=== PATIENT | male | born 1965 | race Caucasian/White ===

== ENCOUNTER 2019-03-04 09:12 | Emergency (ER) | payer MEDICAID ==
[~2019-03-04] VITALS: Ht 170.2 cm; Wt 72.6 kg
[2019-03-04] MEDS ORDERED: LEVETIRACETAM INJ 1,000 MG in D5W 5% 100 ML IV ONE (10:15)
[2019-03-04] MEDS ORDERED: LABETALOL HCL 5 MG/ML 4ML SYRINGE IV ONE (10:15)
[2019-03-04 10:43] VITALS: BP 149/87
[2019-03-04 11:00] LABS: Basophils # (auto) 0 uL; Eosinophils # (auto) 0 uL; Lymphocytes # (auto) 1.2 uL; Monocytes # (auto) 0.6 uL; Nucleated Red Blood Cells % 0.1 %
[2019-03-04 11:02] LABS: Basophils % (auto) 0.6 % (0.0-2.0); Eosinophils % (auto) 0.2 % (0.0-7.0); Hematocrit 44.3 % (41.0-53.0); Hemoglobin 15.4 g/dL (13.5-17.5); Lymphocytes % (auto) 22.1 % (10.0-50.0); Mean Corpuscular Hemoglobin 36.7 pg (28.0-32.0); Mean Corpuscular Hgb Conc. 34.8 g/dL (32.0-36.0); Mean Corpuscular Volume 105.7 fL (80.0-100.0); Monocytes % (auto) 11.3 % (0.0-12.0); Neutrophils # (auto) 3.4 uL; Neutrophils % (auto) 65.8 % (37.0-80.0); Platelet Count (auto) 176 10^3/uL (140-450); Red Blood Cells 4.19 10^6/uL (4.5-5.90); Red Cell Distribution Width 14.2 % (11.8-14.3); White Blood Cell 5.2 10^3/uL (4.4-10.8)
[2019-03-04 11:09] LABS: Albumin 3.7 g/dL (3.4-5.0); Anion Gap 11 (5-15); Blood Urea Nitrogen 7 mg/dL (7-18); Calcium 8.4 mg/dL (8.5-10.1); Carbon Dioxide 24 mmol/L (21-32); Chloride 103 mmol/L (98-107); Glucose 104 mg/dL (74-106); Potassium 3.4 mmol/L (3.5-5.1); Sodium 138 mmol/L (136-145)
[2019-03-04 11:15] LABS: Alanine Aminotransferase 49 U/L (16-61); Alkaline Phosphatase 106 U/L (45-117); Aspartate Aminotransferase 96 U/L (15-37); BUN/Creatinine Ratio 9.7; Bilirubin, Total 0.5 mg/dL (0.2-1.0); GFR African American 146 mL/min; GFR Non-African American 121 mL/min; Total Protein 7.7 g/dL (6.4-8.2)
== END 2019-03-04 10:58 | disposition short-term general hospital (02) ==
LOC: ER 09:12
DX: S06.6X9A Traumatic subarachnoid hemorrhage with loss of consciousness of unspecified duration, initial encounter (principal); S00.12XA Contusion of left eyelid and periocular area, initial encounter; F10.10 Alcohol abuse, uncomplicated; W01.0XXA Fall on same level from slipping, tripping and stumbling without subsequent striking against object, initial encounter; Y93.89 Activity, other specified; Y92.89 Other specified places as the place of occurrence of the external cause; Y99.8 Other external cause status
CPT/HCPCS: 36415; 70450; 70486; 71045; 80053; 84484; 85025; 85610; 85730; 96374; 99291; J1953; J3490; J7060

== ENCOUNTER → 2019-04-23 | Outpatient (CLI) | payer MEDICAID ==
[~2019-04-23] MED LIST: ACET-1156 PO; ATOM80CA PO; ATOR20TA50 PO; BENA10TA9 PO; CYA100I PO; LEVE500T22 PO; MULT-228 PO; PHE100C PO; THIA100T5 PO
== END | disposition home or self-care (01) ==
LOC: LAB 10:09
PROVIDERS: ATTEND Nurse Practitioner
DX: G40.909 Epilepsy, unspecified, not intractable, without status epilepticus (principal)
CPT/HCPCS: 36415; 80185

== ENCOUNTER → 2019-05-07 | Outpatient (CLI) | payer MEDICAID | END | disposition home or self-care (01) | LOC: LAB 13:23 | PROVIDERS: ATTEND Nurse Practitioner | DX: G40.909 Epilepsy, unspecified, not intractable, without status epilepticus (principal) | CPT/HCPCS: 36415; 80185 ==

== ENCOUNTER 2021-01-18 23:26 | Emergency (ER) | payer MEDICAID ==
[~2021-01-18] VITALS: Ht 172.7 cm; Wt 70.3 kg
[~2021-01-18 23:26] MED LIST changes: +BENA10TA15 PO; -BENA10TA9 PO; -LEVE500T22 PO; +LEVE500T32 PO
[2021-01-19 01:04] LABS: Basophils # (auto) 0.1 10 ^3/uL (0-0.2); Monocytes # (auto) 0.3 10 ^3/uL (0-1.3); White Blood Cell 5.7 10^3/uL (4.4-10.8)
[2021-01-19 01:06] LABS: Eosinophils # (auto) 0.1 10 ^3/uL (0-0.8); Eosinophils % (auto) 0.9 % (0.0-7.0); Hematocrit 46.5 % (41.0-53.0); Lymphocytes # (auto) 2.4 10 ^3/uL (0.4-5.4); Lymphocytes % (auto) 41.6 % (10.0-50.0); Mean Corpuscular Hemoglobin 35.5 pg (28.0-32.0); Mean Corpuscular Hgb Conc. 34.5 g/dL (32.0-36.0); Monocytes % (auto) 5.9 % (0.0-12.0); Neutrophils # (auto) 2.9 10 ^3/uL (1.6-8.6); Neutrophils % (auto) 50.6 % (37.0-80.0); Nucleated Red Blood Cells % 0.1 %; Red Blood Cells 4.51 10^6/uL (4.5-5.90); Red Cell Distribution Width 14.1 % (11.8-14.3)
[2021-01-19 01:19] LABS: INR 1.21 (0.9-1.15); Partial Thromboplastin Time 31.1 sec (23.6-33.0)
[2021-01-19 01:25] LABS: Albumin 4.1 g/dL (3.4-5.0); BUN/Creatinine Ratio 10.1; Calcium 8.5 mg/dL (8.5-10.1); Magnesium 2.4 mg/dL (1.6-2.6); Potassium 3.9 mmol/L (3.5-5.1)
[2021-01-19 01:27] LABS: Lactic Acid w/Reflex 2.3 mmol/L (0.4-2.0)
[2021-01-19 01:33] LABS: Bilirubin, Total 0.6 mg/dL (0.2-1.0); Total Protein 8.4 g/dL (6.4-8.2)
[2021-01-19] MEDS ORDERED: SODIUM CHLORIDE 0.9% 1,000 ML IV ONE ×2 (03:00→06:15)
[2021-01-19 08:12] LABS: Urine Bacteria NONE SEEN /hpf (None Seen); Urine Blood Negative /uL (Negative); Urine Specific Gravity 1.014 (1.001-1.035); Urine WBC 1 /hpf (0 - 3)
[2021-01-19 08:18] LABS: Barbiturate Scree,Urine NEGATIVE (NEGATIVE); Benzodiazephine Screen, Urine NEGATIVE (NEGATIVE); Cannabinoid Screen, Urine POSITIVE (NEGATIVE); Cocaine Screen, Urine NEGATIVE (NEGATIVE); Opiate Scree,Urine NEGATIVE (NEGATIVE); Phencyclidine Screen, Urine NEGATIVE (NEGATIVE)
[2021-01-19 08:26] LABS: Amphetamine Screen, Urine NEGATIVE (NEGATIVE)
[2021-01-19 11:15] VITALS: BP 126/68
== END 2021-01-19 11:39 | disposition home or self-care (01) ==
LOC: EDBD 23:26 → ER 23:26
DX: F10.10 Alcohol abuse, uncomplicated (principal); I10 Essential (primary) hypertension; Z79.899 Other long term (current) drug therapy; Y90.8 Blood alcohol level of 240 mg/100 ml or more
CPT/HCPCS: 36415; 70450; 71045; 80053; 80307; 80320; 81001; 83605; 83735; 84484; 85025; 85610; 85730; 87040; 93005; 96360; 96361; 99285; J7030

== ENCOUNTER 2021-01-19 18:05 | Emergency (ER) | payer MEDICAID ==
[~2021-01-19] VITALS: Ht 172.7 cm; Wt 70.3 kg
[2021-01-19] MEDS ORDERED: LORazepam 2MG/ML-1ML VIAL ONE (22:27)
[2021-01-19] MEDS ORDERED: levETIRAcetam 500 MG/5ML INJ IV ONE (22:33)
[2021-01-19] MEDS ORDERED: LORazepam 2MG/ML-1ML VIAL IV ONE (22:45)
[2021-01-19 23:10] LABS: Basophils # (auto) 0 10 ^3/uL (0-0.2); Basophils % (auto) 0.3 % (0.0-2.0); Eosinophils # (auto) 0 10 ^3/uL (0-0.8); Hemoglobin 12.4 g/dL (13.5-17.5); Lymphocytes # (auto) 0.7 10 ^3/uL (0.4-5.4); Neutrophils # (auto) 6.1 10 ^3/uL (1.6-8.6); White Blood Cell 7.5 10^3/uL (4.4-10.8)
[2021-01-19 23:11] LABS: Lymphocytes % (auto) 8.8 % (10.0-50.0); Mean Corpuscular Hemoglobin 34.8 pg (28.0-32.0); Mean Corpuscular Hgb Conc. 33.6 g/dL (32.0-36.0); Mean Corpuscular Volume 103.7 fL (80.0-100.0); Monocytes # (auto) 0.8 10 ^3/uL (0-1.3); Monocytes % (auto) 10.1 % (0.0-12.0); Neutrophils % (auto) 80.8 % (37.0-80.0); Nucleated Red Blood Cells % 0.1 %; Red Blood Cells 3.56 10^6/uL (4.5-5.90); Red Cell Distribution Width 14.1 % (11.8-14.3)
[2021-01-19 23:38] LABS: Alanine Aminotransferase 27 U/L (16-61); Albumin 3.5 g/dL (3.4-5.0); Anion Gap 14 (5-15); Aspartate Aminotransferase 50 U/L (15-37); Blood Alcohol < 3.0 mg/dL (0-5); Blood Urea Nitrogen 6 mg/dL (7-18); Calcium 7.7 mg/dL (8.5-10.1); Carbon Dioxide 19 mmol/L (21-32); Chloride 107 mmol/L (98-107); Glucose 148 mg/dL (74-106); Potassium 3.3 mmol/L (3.5-5.1); Sodium 140 mmol/L (136-145)
[2021-01-19 23:41] LABS: Alkaline Phosphatase 118 U/L (45-117); BUN/Creatinine Ratio 6.5; Bilirubin, Total 1.4 mg/dL (0.2-1.0); GFR African American 108 mL/min; GFR Non-African American 89 mL/min; Total Protein 7.1 g/dL (6.4-8.2)
[2021-01-20 05:19] VITALS: BP 96/32
== END 2021-01-20 06:11 | disposition home or self-care (01) ==
LOC: EDBD 18:05 → ER 18:05
DX: R56.9 Unspecified convulsions (principal); F10.10 Alcohol abuse, uncomplicated; I10 Essential (primary) hypertension; Y90.0 Blood alcohol level of less than 20 mg/100 ml
CPT/HCPCS: 36415; 70450; 71045; 72125; 80053; 80320; 83735; 85025; 96365; 96366; 96375; 99285; J1953; J2060; J7060

== ENCOUNTER 2021-12-27 15:18 | Inpatient (IN) | payer MEDICAID ==
[~2021-12-27] VITALS: Ht 170.2 cm; Wt 76.6 kg
[2021-12-27 16:22] LABS: Basophils # (auto) 0 10 ^3/uL (0-0.2); Eosinophils # (auto) 0 10 ^3/uL (0-0.8); Monocytes # (auto) 0.3 10 ^3/uL (0-1.3); Neutrophils # (auto) 2.8 10 ^3/uL (1.6-8.6); White Blood Cell 3.6 10^3/uL (4.4-10.8)
[2021-12-27 16:24] LABS: Basophils % (auto) 0.5 % (0.0-2.0); Eosinophils % (auto) 0.1 % (0.0-7.0); Hematocrit 40.5 % (41.0-53.0); Hemoglobin 13.9 g/dL (13.5-17.5); Lymphocytes # (auto) 0.4 10 ^3/uL (0.4-5.4); Mean Corpuscular Hemoglobin 35.3 pg (28.0-32.0); Mean Corpuscular Hgb Conc. 34.4 g/dL (32.0-36.0); Mean Corpuscular Volume 102.6 fL (80.0-100.0); Monocytes % (auto) 8.6 % (0.0-12.0); Neutrophils % (auto) 78.8 % (37.0-80.0); Red Blood Cells 3.95 10^6/uL (4.5-5.90)
[2021-12-27] MEDS ORDERED: LORazepam 2MG/ML-1ML VIAL IV ONE (16:30)
[2021-12-27] MEDS ORDERED: LORazepam 2MG/ML-1ML VIAL ONE (16:33)
[2021-12-27] MEDS ORDERED: LORazepam 2MG/ML-1ML VIAL IV PRN ×2 (16:45→20:45)
[2021-12-27 16:46] LABS: Alanine Aminotransferase 35 U/L (16-61); Albumin 3.4 g/dL (3.4-5.0); Anion Gap 9 (5-15); BUN/Creatinine Ratio 9.5; Blood Alcohol < 3.0 mg/dL (0-5); Blood Urea Nitrogen 6 mg/dL (7-18); Calcium 8.6 mg/dL (8.5-10.1); Carbon Dioxide 25 mmol/L (21-32); Chloride 101 mmol/L (98-107); GFR African American 169 mL/min; GFR Non-African American 140 mL/min; Glucose 130 mg/dL (74-106); Magnesium 2.1 mg/dL (1.6-2.6); Potassium 4.1 mmol/L (3.5-5.1); Sodium 135 mmol/L (136-145)
[2021-12-27 16:48] LABS: Alkaline Phosphatase 226 U/L (45-117); Aspartate Aminotransferase 109 U/L (15-37); Bilirubin, Total 1.8 mg/dL (0.2-1.0); Total Protein 7.6 g/dL (6.4-8.2)
[2021-12-27] MEDS ORDERED: MORPHINE SULFATE INJ 2 MG/ml SYRG IV PRN (19:00)
[2021-12-27] MEDS ORDERED: NITROGLYCERIN 0.4 MG SL TAB SL PRN (19:00)
[2021-12-27] MEDS ORDERED: VANCOMYCIN PER PHARMACY 0 MG IV SCH (20:45)
[2021-12-27] MEDS ORDERED: ENOXAPARIN SOD 80 MG/0.8ML SYRINGE SC ONE (21:15)
[2021-12-27] MEDS ORDERED: hydrALAZINE HCL 20 MG/ML VL IV PRN (21:15)
[2021-12-27] MEDS: SODIUM CHLORIDE 0.9% 1,000 ML IV SCH (21:47)
[2021-12-27] MEDS ORDERED: VANCOMYCIN 1GM/250ML 250 ML IV ONE (22:00)
[2021-12-27] MEDS ORDERED: PHENYTOIN SODIUM 100 MG CAP PO SCH (22:00)
[2021-12-27] MEDS ORDERED: ATORVASTATIN 20 MG TAB PO SCH (22:00)
[2021-12-27 22:08] LABS: Blood Alcohol < 3.0 mg/dL (0-5); Cholesterol 140 mg/dL (< 200)
[2021-12-27 22:11] LABS: HDL Cholesterol 96 mg/dL (40-59); LDL Cholesterol 53 mg/dL (< 100); Triglycerides 53 mg/dL (< 150)
[2021-12-27] MEDS: levETIRAcetam 500 MG TAB PO SCH (22:19)
[2021-12-27 22:43] VITALS: BP 100/49
[2021-12-27] MEDS ORDERED: SERT25TA84 PO (23:37)
[2021-12-27] MEDS ORDERED: TAMS0.4C36 PO (23:38)
[2021-12-27] MEDS ORDERED: FUR20T PO (23:39)
[2021-12-27] MEDS ORDERED: HYDRX10T PO (23:40)
[2021-12-27] MEDS: PIPERACILLIN-TAZOB 3.375GM 100 ML IV SCH (23:41)
[2021-12-27] MEDS ORDERED: IOHEXOL 300 MG/ML 100ML BOTTLE IJ ONE (23:48)
[2021-12-28 05:00] VITALS: BP 108/60
[2021-12-28] MEDS: PIPERACILLIN-TAZOB 3.375GM 100 ML IV SCH (06:05)
[2021-12-28 06:12] LABS: Basophils # (auto) 0 10 ^3/uL (0-0.2); Eosinophils # (auto) 0 10 ^3/uL (0-0.8); Eosinophils % (auto) 0.5 % (0.0-7.0); Hemoglobin 12.2 g/dL (13.5-17.5); Monocytes # (auto) 0.5 10 ^3/uL (0-1.3); White Blood Cell 3.8 10^3/uL (4.4-10.8)
[2021-12-28 06:16] LABS: Basophils % (auto) 0.5 % (0.0-2.0); Hematocrit 35.7 % (41.0-53.0); Lymphocytes # (auto) 0.9 10 ^3/uL (0.4-5.4); Lymphocytes % (auto) 24.3 % (10.0-50.0); Mean Corpuscular Hgb Conc. 34.1 g/dL (32.0-36.0); Mean Corpuscular Volume 102.7 fL (80.0-100.0); Monocytes % (auto) 12.6 % (0.0-12.0); Neutrophils # (auto) 2.3 10 ^3/uL (1.6-8.6); Neutrophils % (auto) 62.1 % (37.0-80.0); Nucleated Red Blood Cells % 0.2 %; Red Blood Cells 3.47 10^6/uL (4.5-5.90); Red Cell Distribution Width 13.6 % (11.8-14.3)
[2021-12-28 06:33] LABS: Potassium 3.3 mmol/L (3.5-5.1)
[2021-12-28 06:38] LABS: Urine Bacteria NONE SEEN /hpf (None Seen); Urine Blood Negative /uL (Negative); Urine Specific Gravity 1.037 (1.001-1.035); Urine WBC 1 /hpf (0 - 3)
[2021-12-28 06:38] LABS: Albumin 2.9 g/dL (3.4-5.0); BUN/Creatinine Ratio 6.9; Calcium 8.4 mg/dL (8.5-10.1)
[2021-12-28 06:40] LABS: Bilirubin, Total 2.1 mg/dL (0.2-1.0); Total Protein 6.4 g/dL (6.4-8.2)
[2021-12-28 06:56] LABS: Amphetamine Screen, Urine NEGATIVE (NEGATIVE); Barbiturate Scree,Urine NEGATIVE (NEGATIVE); Benzodiazephine Screen, Urine NEGATIVE (NEGATIVE); Cannabinoid Screen, Urine NEGATIVE (NEGATIVE); Cocaine Screen, Urine NEGATIVE (NEGATIVE); Opiate Scree,Urine NEGATIVE (NEGATIVE); Phencyclidine Screen, Urine NEGATIVE (NEGATIVE)
[2021-12-28] MEDS: SODIUM CHLORIDE 0.9% 1,000 ML IV SCH (07:00)
[2021-12-28 09:00] VITALS: BP 108/64
[2021-12-28] MEDS: levETIRAcetam 500 MG TAB PO SCH (09:23)
[2021-12-28] MEDS ORDERED: BENAZEPRIL HCL 10 MG TAB PO SCH (10:00)
[2021-12-28] MEDS ORDERED: THIAMINE HCL 100 MG TAB PO SCH (10:00)
[2021-12-28] MEDS ORDERED: VANCOMYCIN 1GM/250ML 250 ML IV SCH (11:00)
[2021-12-28] MEDS ORDERED: LEVE500T32 PO (12:44)
[2021-12-28] MEDS ORDERED: PHE100C PO (12:44)
[2021-12-28] MEDS ORDERED: PHENYTOIN IV DILANTIN 1,000 MG in SODIUM CHL 0.9% 250 ML IV ONE (12:45)
[2021-12-28 13:00] VITALS: BP 103/62
[2021-12-28 17:21] VITALS: BP 98/54
[2021-12-31 17:09] LABS: Hepatitis A Ab IgM Negative; Hepatitis B Core IgM Negative; Hepatitis C Antibody Negative (Negative)
== END 2021-12-28 17:30 | disposition home or self-care (01) | DRG 53 ==
LOC: EDBD 15:18 → ER 15:18 → TELE 18:52 → TELE-WESTW 21:56
PROVIDERS: ADMIT Registered Nurse; ATTEND Hospitalist
DX: G40.909 Epilepsy, unspecified, not intractable, without status epilepticus (principal); F10.10 Alcohol abuse, uncomplicated; I10 Essential (primary) hypertension; Z87.820 Personal history of traumatic brain injury; R79.89 Other specified abnormal findings of blood chemistry
CPT/HCPCS: 36415; 70450; 71045; 71275; 76705; 80053; 80061; 80074; 80185; 80307; 80320; 81001; 82140; 82542; 83036; 83605; 83735; 84443; 84484; 85025; 85379; 87040; 87426; 93306; 93886; 93970; 96365; 96372; 96375; G0378; J2543; J7060

== ENCOUNTER 2022-10-19 16:05 | Emergency (ER) | payer MEDICAID ==
[~2022-10-19] VITALS: Ht 170.2 cm; Wt 81.0 kg
[~2022-10-19 16:05] MED LIST changes: -ACET-1156 PO; +ACET-1881 PO; +BENA-19 PO; -BENA10TA15 PO; +FUR20T PO; +HYDRX10T PO; -LEVE500T32 PO; +LEVE500T40 PO; -PHE100C PO; +SERT25TA84 PO; +TAMS0.4C36 PO
[2022-10-19 16:49] VITALS: PULSE 84; RESP 16; O2SAT 94
[2022-10-19] MEDS ORDERED: SODIUM CHLORIDE 0.9% 1,000 ML IV ONE (17:15)
[2022-10-19] MEDS ORDERED: cefTRIAXone 1GM/50ML D5W 50 ML IV ONE (17:15)
[2022-10-19 17:58] LABS: Basophils # (auto) 0.1 10 ^3/uL (0-0.2); Basophils % (auto) 1.3 % (0.0-2.0); Eosinophils # (auto) 0.1 10 ^3/uL (0-0.8); Eosinophils % (auto) 1.3 % (0.0-7.0); Hematocrit 37.7 % (41.0-53.0); Hemoglobin 12.5 g/dL (13.5-17.5); Lymphocytes # (auto) 1.1 10 ^3/uL (0.4-5.4); Lymphocytes % (auto) 23.2 % (10.0-50.0); Mean Corpuscular Hemoglobin 33.3 pg (28.0-32.0); Mean Corpuscular Hgb Conc. 33.1 g/dL (32.0-36.0); Mean Corpuscular Volume 100.8 fL (80.0-100.0); Monocytes # (auto) 0.6 10 ^3/uL (0-1.3); Monocytes % (auto) 12.3 % (0.0-12.0); Neutrophils % (auto) 61.9 % (37.0-80.0); Nucleated Red Blood Cells % 0.2 %; Red Blood Cells 3.74 10^6/uL (4.5-5.90); Red Cell Distribution Width 16.2 % (11.8-14.3); White Blood Cell 4.9 10^3/uL (4.4-10.8)
[2022-10-19 18:13] LABS: INR 1.39 (0.9-1.15); Prothrombin Time 14.3 sec (9.3-11.8)
[2022-10-19 18:16] LABS: Alanine Aminotransferase 28 U/L (7-40); Albumin 3.6 g/dL (3.2-4.8); Alkaline Phosphatase 206 U/L (46-116); Anion Gap 9.6 (5-15); Aspartate Aminotransferase 131 U/L (13-40); Bilirubin, Total 1.6 mg/dL (0.2-1.0); Calcium 8.1 mg/dL (8.5-10.1); Carbon Dioxide 22.4 mmol/L (20-30); Chloride 104 mmol/L (98-107); Glucose 114 mg/dL (74-106); Magnesium 1.7 mg/dL (1.6-2.6); Potassium 3.7 mmol/L (3.5-5.1); Sodium 136 mmol/L (136-145)
[2022-10-19 18:17] LABS: Total Protein 6.9 g/dL (5.7-8.2)
[2022-10-19 18:22] LABS: BUN/Creatinine Ratio 8.3 (10.0-20.0); Blood Urea Nitrogen < 5 mg/dL (9-23)
[2022-10-19 18:29] LABS: Blood Alcohol 408.5 mg/dL (<10)
[2022-10-19 20:05] VITALS: PULSE 88; RESP 18; O2SAT 94
[2022-10-19 22:44] VITALS: BP 103/59; PULSE 91; RESP 15; TEMP 98.5; O2SAT 96
== END 2022-10-19 23:26 | disposition hospice, inpatient (51) ==
LOC: EDBD 16:05 → ER 16:05
DX: S02.122A Fracture of orbital roof, left side, initial encounter for closed fracture (principal); F10.10 Alcohol abuse, uncomplicated; M47.22 Other spondylosis with radiculopathy, cervical region; I11.0 Hypertensive heart disease with heart failure; I50.9 Heart failure, unspecified; E78.5 Hyperlipidemia, unspecified; G40.909 Epilepsy, unspecified, not intractable, without status epilepticus; W18.09XA Striking against other object with subsequent fall, initial encounter; Y93.89 Activity, other specified; Y92.098 Other place in other non-institutional residence as the place of occurrence of the external cause; Y99.8 Other external cause status
CPT/HCPCS: 36415; 70450; 71045; 72125; 80053; 80320; 83735; 85025; 85610; 85730; 93005; 96365; 99285; J7030; 81001

== ENCOUNTER 2023-07-12 19:01 | Inpatient (IN) | payer MEDICAID, MEDICARE ==
[~2023-07-12] VITALS: Ht 170.2 cm; Wt 90.3 kg
[~2023-07-12 19:01] MED LIST changes: -BENA-19 PO; +BENA10TA90 PO
[2023-07-12 19:40] LABS: Basophils # (auto) 0 10 ^3/uL (0-0.2); Eosinophils # (auto) 0 10 ^3/uL (0-0.8); Hemoglobin 11.6 g/dL (13.5-17.5); Lymphocytes # (auto) 0.2 10 ^3/uL (0.4-5.4); Monocytes # (auto) 0.5 10 ^3/uL (0-1.3); Nucleated Red Blood Cells % 0.1 %
[2023-07-12 19:41] LABS: Basophils % (auto) 0.5 % (0.0-2.0); Hematocrit 34.2 % (41.0-53.0); Lymphocytes % (auto) 3.4 % (10.0-50.0); Mean Corpuscular Hemoglobin 36.7 pg (28.0-32.0); Monocytes % (auto) 7.8 % (0.0-12.0); Neutrophils # (auto) 5.5 10 ^3/uL (1.6-8.6); Neutrophils % (auto) 88.3 % (37.0-80.0); Red Blood Cells 3.17 10^6/uL (4.5-5.90); Red Cell Distribution Width 18.1 % (11.8-14.3); White Blood Cell 6.2 10^3/uL (4.4-10.8)
[2023-07-12 19:51] LABS: Chloride 104 mmol/L (98-107); Potassium 3.3 mmol/L (3.5-5.1); Sodium 135 mmol/L (136-145)
[2023-07-12 19:52] LABS: Anion Gap 10 (5-15); Carbon Dioxide 21 mmol/L (20-30)
[2023-07-12 19:53] LABS: Calcium 8.1 mg/dL (8.5-10.1)
[2023-07-12 19:57] LABS: Glucose 130 mg/dL (74-106)
[2023-07-12 19:58] LABS: Blood Alcohol 99.3 mg/dL (<10)
[2023-07-12 19:59] LABS: BUN/Creatinine Ratio 7.4 (10.0-20.0); Blood Urea Nitrogen < 5 mg/dL (9-23)
[2023-07-12] MEDS: levETIRAcetam 1000 mg/100ml 100 ML IV ONE (21:25)
[2023-07-12 21:30] VITALS: PULSE 119; RESP 24; O2SAT 95
[2023-07-12] MEDS ORDERED: hydrALAZINE HCL 20 MG/ML VL IV PRN (21:30)
[2023-07-12] MEDS ORDERED: DOCUSATE SOD 100 MG CAP PO PRN (21:30)
[2023-07-12] MEDS ORDERED: ONDANSETRON HCL 4 MG/2 ML VIAL IV PRN (21:30)
[2023-07-12] MEDS ORDERED: HYDROcodone-ACET 5/325MG TAB PO PRN (21:30)
[2023-07-12] MEDS ORDERED: NITROGLYCERIN 0.4 MG SL TAB SL PRN (22:15)
[2023-07-12] MEDS ORDERED: LORazepam 2MG/ML-1ML VIAL IV PRN (22:15)
[2023-07-12] MEDS ORDERED: MORPHINE SULFATE INJ 2 MG/ml SYRG IV PRN (22:15)
[2023-07-13] VITALS (7 sets, daily range): BP systolic 132–150; BP diastolic 70–83; PULSE 54–113; RESP 17–21; TEMP 99–101.4; O2SAT 94–100
[2023-07-13] MEDS: ATORVASTATIN 20 MG TAB PO SCH (00:14)
[2023-07-13] MEDS: cefTRIAXone 1GM/50ML D5W 50 ML IV ONE (00:14)
[2023-07-13] MEDS: SODIUM CHLORIDE 0.9% 1,000 ML IV SCH (00:14)
[2023-07-13] MEDS: POTASSIUM CHL 20 Meq TABLET PO ONE (00:15)
[2023-07-13] MEDS: ACETAMINOPHEN 325 MG TAB PO PRN (00:31)
[2023-07-13 05:36] LABS: Basophils # (auto) 0 10 ^3/uL (0-0.2); Basophils % (auto) 0.2 % (0.0-2.0); Eosinophils # (auto) 0 10 ^3/uL (0-0.8); Hematocrit 33.7 % (41.0-53.0); Neutrophils # (auto) 5.3 10 ^3/uL (1.6-8.6); White Blood Cell 6.1 10^3/uL (4.4-10.8)
[2023-07-13 05:39] LABS: Hemoglobin 11.6 g/dL (13.5-17.5); Lymphocytes # (auto) 0.2 10 ^3/uL (0.4-5.4); Mean Corpuscular Hemoglobin 36.8 pg (28.0-32.0); Mean Corpuscular Hgb Conc. 34.5 g/dL (32.0-36.0); Mean Corpuscular Volume 106.6 fL (80.0-100.0); Monocytes # (auto) 0.6 10 ^3/uL (0-1.3); Monocytes % (auto) 9.1 % (0.0-12.0); Neutrophils % (auto) 86.7 % (37.0-80.0); Red Blood Cells 3.16 10^6/uL (4.5-5.90); Red Cell Distribution Width 17.2 % (11.8-14.3)
[2023-07-13 05:55] LABS: Alanine Aminotransferase 35 U/L (7-40); Alkaline Phosphatase 110 U/L (46-116); Anion Gap 4 (5-15); BUN/Creatinine Ratio 6.8 (10.0-20.0); Blood Urea Nitrogen 5 mg/dL (9-23); Calcium 8.2 mg/dL (8.7-10.4); Carbon Dioxide 26 mmol/L (20-30); Chloride 104 mmol/L (98-107); Glucose 128 mg/dL (74-106); Potassium 3.3 mmol/L (3.5-5.1); Sodium 134 mmol/L (136-145)
[2023-07-13 05:57] LABS: Aspartate Aminotransferase 109 U/L (13-40); Bilirubin, Total 5.3 mg/dL (0.2-1.0); Total Protein 6.8 g/dL (5.7-8.2)
[2023-07-13 07:02] LABS: Macrocytosis Moderate; Platelet Estimate Decreased
[2023-07-13] MEDS: levETIRAcetam 1000 mg/100ml 100 ML IV SCH (09:31)
[2023-07-13] MEDS: FOLIC ACID 1 MG TAB PO SCH (09:31)
[2023-07-13] MEDS: MULTIPLE VITAMIN TAB PO SCH (09:32)
[2023-07-13] MEDS: THIAMINE HCL 100 MG TAB PO SCH (09:32)
[2023-07-13] MEDS: SERTRALINE HCL 50 MG TAB PO SCH (09:32)
[2023-07-13] MEDS: FOLIC ACID 1 MG, MULTIPLE VITAMIN 10 ML, MAGNESIUM SULF SDV 50% 8 MEQ, THIAMINE INJ 100... INJ SCH (18:46)
[2023-07-13] MEDS: LORazepam 2MG/ML-1ML VIAL IV PRN (22:54)
[2023-07-13] MEDS: cefTRIAXone 1GM/50ML D5W 50 ML IV SCH (22:55)
[2023-07-14] VITALS (9 sets, daily range): BP systolic 112–143; BP diastolic 67–77; PULSE 73–99; RESP 16–21; TEMP 98.4–100; O2SAT 94–97
[2023-07-14 09:05] LABS: Hepatitis B Surface Antigen Negative (Negative)
[2023-07-14 09:26] LABS: Hepatitis C Antibody Negative (Negative)
[2023-07-14] MEDS: chlordiazePOXIDE HCL 25 MG CAP PO SCH (15:30)
[2023-07-15] VITALS (8 sets, daily range): BP systolic 110–137; BP diastolic 58–77; PULSE 73–96; RESP 16–18; TEMP 98.1–99.1; O2SAT 91–97
[2023-07-15] MEDS: chlordiazePOXIDE HCL 25 MG CAP PO SCH (09:09)
[2023-07-16] MEDS ORDERED: chlordiazePOXIDE HCL 25 MG CAP PO SCH (10:00)
[2023-07-17] MEDS ORDERED: chlordiazePOXIDE HCL 25 MG CAP PO SCH (07:00)
== END 2023-07-15 22:44 | DRG 871 ==
LOC: ER 19:01 → EDBD 19:01 → TELE 22:16 → TELE-WESTW 07-13 08:45
PROVIDERS: ADMIT Nurse Practitioner Family; ATTEND Internal Medicine
DX: A41.9 Sepsis, unspecified organism (principal); G93.41 Metabolic encephalopathy; J69.0 Pneumonitis due to inhalation of food and vomit; J18.9 Pneumonia, unspecified organism; D69.6 Thrombocytopenia, unspecified; G40.409 Other generalized epilepsy and epileptic syndromes, not intractable, without status epilepticus; E87.6 Hypokalemia; R79.89 Other specified abnormal findings of blood chemistry; I10 Essential (primary) hypertension; F10.129 Alcohol abuse with intoxication, unspecified; E78.00 Pure hypercholesterolemia, unspecified; E86.0 Dehydration; K70.30 Alcoholic cirrhosis of liver without ascites; Z91.199 Patient's noncompliance with other medical treatment and regimen due to unspecified reason; Z91.148 Patient's other noncompliance with medication regimen for other reason; Y90.4 Blood alcohol level of 80-99 mg/100 ml
CPT/HCPCS: 36415; 70450; 71045; 73060; 73502; 80048; 80053; 80320; 82542; 82962; 83880; 84484; 85025; 86803; 87340; 93005; 96365; 96367; G0378

== ENCOUNTER 2023-07-25 11:08 | Emergency (ER) | payer MEDICARE ==
[~2023-07-25] VITALS: Ht 180.3 cm; Wt 81.8 kg
[2023-07-25 11:45] VITALS: PULSE 84; RESP 20; TEMP 98.1; O2SAT 98
[2023-07-25 13:51] LABS: Basophils # (auto) 0 10 ^3/uL (0-0.2); Eosinophils # (auto) 0 10 ^3/uL (0-0.8); Eosinophils % (auto) 0.7 % (0.0-7.0); Lymphocytes # (auto) 0.8 10 ^3/uL (0.4-5.4)
[2023-07-25 13:52] LABS: Basophils % (auto) 0.3 % (0.0-2.0); Hemoglobin 11.3 g/dL (13.5-17.5); Lymphocytes % (auto) 10.9 % (10.0-50.0); Mean Corpuscular Hemoglobin 36.8 pg (28.0-32.0); Mean Corpuscular Hgb Conc. 35.3 g/dL (32.0-36.0); Mean Corpuscular Volume 104.3 fL (80.0-100.0); Monocytes # (auto) 0.9 10 ^3/uL (0-1.3); Monocytes % (auto) 12.8 % (0.0-12.0); Neutrophils # (auto) 5.2 10 ^3/uL (1.6-8.6); Neutrophils % (auto) 75.3 % (37.0-80.0); Red Blood Cells 3.06 10^6/uL (4.5-5.90); Red Cell Distribution Width 17.1 % (11.8-14.3)
[2023-07-25 13:58] LABS: Alanine Aminotransferase 49 U/L (7-40); Albumin 2.7 g/dL (3.2-4.8); Alkaline Phosphatase 168 U/L (46-116); Anion Gap 4 (5-15); Aspartate Aminotransferase 109 U/L (13-40); Bilirubin, Total 13.6 mg/dL (0.2-1.0); Blood Urea Nitrogen 8 mg/dL (9-23); Calcium 8.1 mg/dL (8.7-10.4); Carbon Dioxide 24 mmol/L (20-30); Chloride 97 mmol/L (98-107); Glucose 96 mg/dL (74-106); Lipase 87 U/L (12-53); Potassium 4.5 mmol/L (3.5-5.1); Sodium 125 mmol/L (136-145); Total Protein 6.5 g/dL (5.7-8.2)
[2023-07-25 14:10] LABS: BUN/Creatinine Ratio 11.1 (10.0-20.0)
[2023-07-25 16:00] VITALS: BP 121/62; PULSE 85; RESP 20; O2SAT 96
== END 2023-07-25 17:28 | disposition home or self-care (01) ==
LOC: EDBD 11:08 → ER 11:08
DX: K70.31 Alcoholic cirrhosis of liver with ascites (principal); E78.5 Hyperlipidemia, unspecified; I10 Essential (primary) hypertension
CPT/HCPCS: 36415; 74176; 76705; 80053; 83605; 83690; 83880; 84484; 85025